=== PATIENT | male | born 1980 | race Caucasian/White ===

== ENCOUNTER 2021-07-17 15:15 | Emergency (ER) | payer BC, SELFPAY ==
--- NOTE | ~2021-07-17 | XR_ITS ---
EXAMINATION: XR FINGER, LEFT CLINICAL INFORMATION: Cardiac failure with some COMPARISON: None TECHNIQUE: Three views of the left thumb. FINDINGS: No fracture. No focal soft tissue swelling. No appreciable degenerative changes. A few punctate echogenic foci projecting over the dorsal soft tissues of the thumb possibly represents foreign bodies. Clinical correlation recommended. Limited imaging of the remainder of the left hand is grossly unremarkable. XR/XR finger LT min 2V IMPRESSION: No fracture.
[2021-07-17 17:23] VITALS: BP 141/87; PULSE 62; RESP 98; TEMP 36.6; O2SAT 99; BMI 33.1
--- NOTE | 2021-07-17 21:07 | ED_ITS ---
HPI - Wound/Laceration General Chief Complaint: Wound/Laceration Stated Complaint: finger lac at work Time Seen by Provider: 07/17/21 21:06 Source: patient Mode of arrival: ambulatory Limitations: no limitations History of Present Illness HPI narrative: Cut left thumb with reciprocating saw, 12 hours ago, Up to date with tetanous. Onset (ago): hour(s) Place: work Patient tetanus UTD: Yes Context: accidental Related Data Previous Rx's Medication Instructions Recorded cephalexin 500 mg capsule 500 mg PO QID #20 cap 07/17/21 Allergies Allergy/AdvReac Type Severity Reaction Status Date / Time No Known Allergies Allergy Verified 07/17/21 21:09 Review of Systems Constitutional: Constitutional: Reports no additional constitutional complaints Eyes: Eyes: Reports no additional eye complaints ENT: Denies dizziness Cardiovascular: Cardiovascular: Reports no additional cardiovascular complaints Respiratory: Respiratory: Reports as per HPI Gastrointestinal: Gastrointestinal: Reports no additional gastrointestinal complaints Musculoskeletal: Musculoskeletal: Reports no additional musculoskeletal complaints Integumentary/Breasts: Skin/Breast: Denies rash Neurologic: Reports system reviewed and no additional complaints, except as documented, Denies dizziness and Denies Sensory deficit (Neuro) Psychiatric: Psychiatric: Denies anxiety REPLACED BY [facility] Past Medical History Medical History No known health problems Social History Social History Advance Directives: No Advance Directives Information Provided: No Physical Exam Vital Signs: Vital Signs: Last Vital Signs Temp 97.8 F 07/17/21 17:23 Pulse 62 07/17/21 17:23 Resp 98 H 07/17/21 17:23 BP 141/87 H 07/17/21 17:23 Pulse Ox 99 07/17/21 17:23 BMI result Body Mass Index 33.1 Const: General: healthy appearing Nutritional Appearance: average body habitus Orientation/consciousness: oriented to person and patient oriented x3 Limitations: no limitations HENMT: Head: Yes normal to inspection Ears: external ears normal General nose exam: Normal external nose present Mouth: Normal oral and palatal mucosa present and oropharynx normal Throat: Yes posterior oropharynx normal Eyes: General: appearance normal, both eyes and all related structures Neck: Other: supple Neck: Yes normal visual inspection Chest: Chest palpation & inspection: normal inspection of the chest Resp: Auscultation: clear to auscultation bilaterally Cardio: Jugular venous distension: no JVD Rate: regular rate Rhythm: regular rhythm Heart sounds: S1 normal heart sound present and S2 normal heart sound present GI: Inspection: Yes normal to inspection Palpation (GI): Soft to palpation, nontender and No hepatosplenomegaly present Auscultation: normal bowel sounds : General: Yes no CVA tenderness Back/Spine/Pelvis: Back: no CVA tenderness Skin: General skin exam: no rashes or lesions noted Neuro: General: oriented to person and patient oriented x3 Cranial nerves: Yes CN's II-XII intact bilaterally Motor exam (neuro): 5/5 motor strength present throughout Sensory Exam: No Sensory deficit (Neuro) Extrem: Other: 6cm laceration to dorsum of left thumb. Neurovascularly intact, FROM Psych: Appearance: grossly normal Course Reevaluation(s) Reevaluation #1: laceration visualized down to extensor tendon Time: 22:15 Procedures Procedure Narrative Procedure Narrative: Patient prepped and draped in sterile fashion, 1% lidocaine used for anesthesia digital block placed, wound irrigated under pressure with saline, closed with 5-0 nylon x 12. Patient tolerated procedure well. Discharge Plan Discharge Clinical Impression: Laceration Patient Disposition: Home, Self-Care Instructions: Care For Your Stitches (ED) Additional Instructions: suture removal in 10 days, keep splint on Prescriptions: New cephalexin 500 mg capsule 500 mg PO QID Qty: 20 RF: 0 Referrals: Physician,Unknown J [Primary Care Provider] - 10 days
[2021-07-17] MEDS: Lidocaine HCl 1 % 20 ML VIAL 10 ML SUBCUT (22:25)
[2021-07-17] MEDS: cephALEXin 500 MG CAPSULE PO (22:52)
== END 2021-07-17 22:56 | disposition home or self-care (01) ==
PROVIDERS: Emergency Provider Emergency Medicine
DX: S61.012A Laceration without foreign body of left thumb without damage to nail, initial encounter (principal); W27.0XXA Contact with workbench tool, initial encounter; Y93.89 Activity, other specified; Y92.9 Unspecified place or not applicable; Y99.0 Civilian activity done for income or pay
CPT/HCPCS: 12042; 73140; 99283; 99284